=== PATIENT | female | born 1965 | race Caucasian/White ===

== ENCOUNTER 2017-11-06 16:30 | Outpatient (RCR) | payer OTHER, SELFPAY ==
--- NOTE | 2017-09-19 18:38 | HP.PTEVAL ---
Patient's Visit Information ROSMERY HERNADEZ is a 52 year old F referred to Physical Therapy by Eladio Diaz MD with a diagnosis of Shoulder Pain. Date of Evaluation: 09/19/17 Physical Therapist: Bette Martínez - Visit Plan Frequency: 2x /Week Duration: 4 Weeks Plan: Focus on UE ROM and strength - Subjective Subjective: Patient reports that she has bilateral shoulder pain- right is worse than left- insidous onset over the last few months. She went to the MD who diagnosed her with RTC tendonitis. She has not had x-rays or MRI of either shoulder. She feels that the pain/lack of ROM is getting worse. Pain at the worst is a 10/10 agg: pulling overhead, behind her back or lifting things. Best: 2/10 Eases: rest and keeping the arm close to her side. Pain is located along the anterior shoulder and runs to the posterior shoulder. Describes the pain as sharp/shooting. No neck pain but does report seeing a chiropractor for her back. N/T to the middle finger on the right that comes and goes. Sleep is disturbed- she sleeps on her side. Right hand dominate. Work: [employer]- she is on the computer and phone all day. PMHx: DM, Seizures (well controlled last was 15 years ago), sleep apnea. Meds: depicote, metformin, glenobride, Aleve - Objective Posture: FH, RS, increased kyphosis- prominent CT junction- can correct posture with VC's but does not maintain. Gait: decreased arm swing. Palpation: tender along tip of the acromion into the bicipital groove and medial border of the scapula. ROM: Cervical: WNL no pain, Shoulder: Left: wnl in all planes soreness reported with ER/IR, AROM Right- flexion: 130 degrees, abd: 110 degrees, ir: greater troch, AAROM: WNL in all planes with pain abd, flexion, ir,er. Elbow/Wrist/Hand: WNL. Strength: Cervical: 4+/5, Shoulder: flex-4/5, abd: 4/5, extn/add:4+/5, IR/ER: 4-/5 with pain. Scap: fair minus with mild winging. Special Test: Impingement: positive, Empty Can: positive - Goals Goal 1:: Patient will be I with HEP and progression Goal Time Frame: 4-6 Weeks Goal 2:: Patient will demo full AROM of the right shoulder Goal Time Frame: 4-6 Weeks Goal 3:: Patient will maintain proper posture to demo increased scap s/s Goal Time Frame: 4-6 Weeks Goal 4:: Patient will stack cones overhead for 2 min with 0/10 pain Goal Time Frame: 4-6 Weeks - Rehabilitation Potential Physical Therapy Diagnosis: Patient presents with hypomobility- she has decreased strength, ROM and muscular endurance leading to poor posture and increased pain with ADL's. Rehabilitation Potential: Fair - Anticipated Interventions Patient/Client Instruction: Educate patient on: Benefits of Fitness Program For the Purpose of:: To improve ability to perform ADL's Therapeutic Exercise to Include: Strength training, Endurance training, Body mechanics, Postural training, Passive ROM, Active ROM, Scapular Strength/Stabilization For the Purpose of:: To improve muscle performance and motor function TENS: Yes Cryotherapy (ice pack, ice massage): Yes Thermo therapy (hot pack): Yes Ultrasound (thermal/non thermal): Yes For the Purpose of:: To decrease pain Thank you for the opportunity to evaluate your patient. For Medicare and Medicare HMO plans, please review the plan of care and approve it. It will need to be FAXED BACK to us at [phone] for Medicare purposes. Please let me know if there are questions or concerns regarding this plan of care. Physician Signature: Date:
--- NOTE | 2017-10-16 16:48 | HP.PTREVAL_ITS ---
Eladio Diaz MD, It has been my pleasure to treat ROSMERY HERNADEZ over the last 8 visits for Shoulder Pain. Please see the progress note below for an update on the physical therapy plan of care! Subjective: Patient reports that the shoulders are getting better. Feels like we are on the right path. Worst in the last week 3-07/18- but most of the time painfree. Stiff in the AM and today after doing yard work. not waking her up at night. Feels that she would like another round of therapy and making herself use it. Objective/Function: Posture: FH, RS, increased kyphosis- prominent CT junction- can correct posture with VC's but does not maintain more than 3 minutes. Palpation: infraspinatus left>right. ROM: Cervical: WNL no pain, Shoulder: Left /right: WNL- increased discomfort with IR Elbow/Wrist/Hand: WNL. Strength: Cervical: 4+/5, Shoulder: flex-4+/5, abd: 4+/5, extn/add:4+/5, IR/ER: 4/5 with pain. Scap: fair minus with mild winging. Special Test: Impingement: positive, Empty Can: positive Plan Plan: Continue 2x a week for 2-3 weeks to promote HEP Goals Goal 1:: Patient will be I with HEP and progression Goal Time Frame: 4-6 Weeks Goal Progress: Progressing Goal 2:: Patient will demo full AROM of the right shoulder Goal Time Frame: 4-6 Weeks Goal Progress: Goal Met Goal 3:: Patient will maintain proper posture to demo increased scap s/s Goal Time Frame: 4-6 Weeks Goal Progress: Progressing Goal 4:: Patient will stack cones overhead for 2 min with 0/10 pain Goal Time Frame: 4-6 Weeks Goal Progress: Progressing Anticipated Interventions Patient/Client Instruction: Educate patient on: Benefits of Fitness Program For the Purpose of:: To improve ability to perform ADL's Therapeutic Exercise to Include: Strength training, Endurance training, Body mechanics, Postural training, Passive ROM, Active ROM, Scapular Strength/ Stabilization For the Purpose of:: To improve muscle performance and motor function TENS: Yes Cryotherapy (ice pack, ice massage): Yes Thermo therapy (hot pack): Yes Ultrasound (thermal/non thermal): Yes For the Purpose of:: To decrease pain Please do not hesitate to contact me at [phone] by phone or Fax: if you have questions or concerns regarding this new plan of care! Sincerely, Bette Martínez
--- NOTE | 2018-01-01 16:35 | HP.PTDCNRP_ITS ---
HP - Discharge Summary (1) - Patient Information ROSMERY HERNADEZ was seen in my office for initial evaluation on 09/19/17. The following Plan of Care was established for this patient: Initial Frequency: 2x /Week Initial Duration: 4 Weeks - Anticipated Interventions Patient/Client Instruction: Educate patient on: Benefits of Fitness Program For the Purpose of:: To improve ability to perform ADL's Therapeutic Exercise to Include: Strength training, Endurance training, Body mechanics, Postural training, Passive ROM, Active ROM, Scapular Strength/ Stabilization For the Purpose of:: To improve muscle performance and motor function TENS: Yes Cryotherapy (ice pack, ice massage): Yes Thermo therapy (hot pack): Yes Ultrasound (thermal/non thermal): Yes For the Purpose of:: To decrease pain This patient was last seen in our office . Pertinent comments regarding their Physical therapy will appear below: Patient has not attended physical therapy in over 4 weeks and is appropriate for d/c. At this point I will be discontinuing this patient from physical therapy. I would be happy to see this patient again in the future if found appropriate by the physician. Thank you! Bette Martínez
== END 2017-11-06 19:00 | disposition home or self-care (01) ==
LOC: PT 16:30
PROVIDERS: Family Provider Family Medicine; PCP Family Medicine; Visit Provider Family Medicine
DX: M75.22 Bicipital tendinitis, left shoulder (principal); M75.21 Bicipital tendinitis, right shoulder
CPT/HCPCS: 97110; 97161; 97164

== ENCOUNTER 2018-11-13 11:43 | Emergency (ER) | payer OTHER, SELFPAY ==
[2018-11-13 11:44] VITALS: BP 167/84; PULSE 84; RESP 16; TEMP 36.6; O2SAT 97; BMI 40.3
--- NOTE | 2018-11-13 11:51 | EKG12_ITS ---
Test Reason : CP Blood Pressure : / mmHG Vent. Rate : 080 BPM Atrial Rate : 080 BPM P-R Int : 132 ms QRS Dur : 076 ms QT Int : 404 ms P-R-T Axes : 052 -15 032 degrees QTc Int : 465 ms Normal sinus rhythm Nonspecific ST abnormality Abnormal ECG Confirmed by ANISHA GOLDEN ([id number]), website/blog editor KATHE BESS ([id number]) on 11/14/2018 2:34:14 PM Referred By: MIKHAIL Confirmed By:ANISHA GOLDEN
--- NOTE | 2018-11-13 11:53 | NURSING ---
NO OLD EKGS
--- NOTE | 2018-11-13 12:48 | CT_ITS ---
STUDY: CT ABDOMEN AND PELVIS WITHOUT CONTRAST REASON FOR EXAM: Female, 53 years old. 2 day history of left upper quadrant pain. RADIATION DOSAGE (If Supplied By Facility): CTDIvol = ( 13.71 ) mGy, DLP = ( 1344.94 ) mGycm TECHNIQUE: Transaxial images were obtained from the dome of the diaphragm to the symphysis pubis without oral contrast, and without intravenous contrast. Sagittal and coronal images were reconstructed. Individualized dose optimization techniques were used for this CT. COMPARISON: None. FINDINGS: The visualized lung bases are unremarkable. The visualized portions of the heart are within normal limits. There is decreased attenuation of the liver consistent with steatosis. Normal gallbladder and extrahepatic biliary system. Normal spleen. There is a 1.5 cm x 1.5 cm splenule in the upper left upper quadrant. Normal pancreas. Normal bilateral adrenal glands. Normal right kidney. Normal left kidney. Normal visualized stomach. Normal small intestine. Normal colon. The appendix is visualized and appears normal. There is scattered atherosclerotic calcification of the abdominal aorta, without a demonstrated aneurysm. Normal inferior vena cava. Normal retroperitoneum. Normal urinary bladder. IUD is seen within the uterus. Normal abdominal wall. There are degenerative changes of the visualized lumbar spine. CT/Abdomen/Pelvis W IV Cont ONLY IMPRESSION: Fatty infiltration of the liver. IUD is seen within the endometrium Electronically Signed: Daniel Whitman, at 15:13 EDT , Service support ,
--- NOTE | 2018-11-13 12:49 | ED.DCSUM_ITS ---
History of Present Illness Chief Complaint: General Illness Detail of Chief Complaint: abd pain Informant: Patient - Abdominal Pain/Flank Pain Onset: Weeks - 3 Context: Gradual Onset Timing: Continuous Quality: Dull Location: LUQ Current Severity: Moderate Maximum Severity: Moderate Worsened by: Nothing - nonpleuritic Relieved by: Nothing - Nausea/Vomiting/Emesis GI Symptom: Negative for: Nausea, Vomiting - Diarrhea/Melena/Hematochezia GI Symptom: Negative for: Diarrhea, Melena, Hematochezia Associated Symptoms: Negative for: Dysuria, Frequency, Hematuria, Urgency Narrative: 3 weeks of discomfort in her left upper quadrant, now for the last 3 or 4 days she has had gradual onset of left shoulder discomfort that is nonpleuritic, does not get worse when she moves her shoulder, radiates into her left proximal upper arm but not to her elbow. Occasionally get some paresthesias in her right hand but that has been going on for a lot longer. It is more when she reaches out with her hand. When I ask if she has chest discomfort, she points to her anterior left shoulder but no other discomfort. She denies any dyspnea, hemoptysis, leg pain or swelling, history DVT or PE, recent travel, immobilization, hospitalization, or surgery in the last 2 months. Prior similar symptoms: No - Past Medical History (1) Type 2 diabetes mellitus Status: Chronic (2) Seizure disorder Status: Chronic Past Medical History - Allergies and Home Meds Allergies/Adverse Reactions: Allergies No Known Allergies Allergy (Verified 11/13/18 13:10) Primary Care Physician: Lisa Mcnulty DO [Primary Care Provider] - Smoking Status: Never smoker Alcohol: None Drugs: None Review of Systems General: Denies: Chills, Fever, Sweats Eyes: Denies: Visual changes - bilaterally, Diplopia ENT: Denies: Rhinorrhea, Sore throat Cardiovascular: Reports: Chest pain - See HPI. Denies: Palpitations Respiratory: Denies: Dyspnea, Cough, Dyspnea on exertion Gastrointestinal: Reports: Abdominal pain. Denies: Nausea, Vomiting, Diarrhea, Melena, Hematochezia Genitourinary: Denies: Dysuria, Hematuria, Frequency Musculoskeletal: Reports: Extremity Pain. Denies: Neck pain, Back pain, Swelling Skin: Denies: Rash, Wounds Neurological: Reports: Parasthesia - See HPI. Denies: Headache, Weakness, Numbness Physical Exam Vital Signs/Narrative: Vital Signs Temp Pulse Resp BP Pulse Ox 11/13/18 11:44 97.8 F 84 16 167/84 H 97 Inital Vital Signs reviewed: Yes General: Well nourished, Well developed, No Acute Distress Head: Normocephalic, Atraumatic Eyes: Perrl, EOMI ENT: Moist mucous membranes, No rhinorrhea Neck: Supple, Nontender, No lymphadenopathy, No JVD Cardiovascular: Regular rate, Regular rhythm, No murmurs, Normal S1, Normal S2. Negative for: Tachycardia Respiratory: No distress, CTA bilaterally, Chest nontender Abdomen: Soft, Nondistended, Normal bowel sounds, Tender - Left upper quadrant only, especially when patient takes deep inspiration with my hand palpating. Negative for: Guarding, Rebound tenderness, Del Valle's sign Back: Nontender, Normal Inspection. Negative for: CVA tenderness, Spinal tenderness Extremities: Nontender, No edema. Negative for: Calf Tenderness Skin: Normal color, No rash Neurological: Alert, Oriented x3, Cranial nerves II-XII grossly intact, Normal Strength, Normal Sensation Psychological: Normal affect, Normal Mood Diagnostic/Tx/Re-eval Impressions Abdomen/Pelvis CT 11/13/18 12:48 IMPRESSION: Fatty infiltration of the liver. IUD is seen within the endometrium Electronically Signed: Daniel Whitman, at 15:13 EDT , Service support , Chest X-Ray 11/13/18 12:49 IMPRESSION: No acute abnormality is seen. Electronically Signed: Daniel Whitman, at 14:41 EDT , Service support , 11/13/18 12:48 Abdomen/Pelvis W IV Cont ONLY [CT] Stat 11/13/18 12:49 Chest PA and Lateral [RAD] Stat Laboratory Results 11/13/18 11/13/18 11/13/18 13:00 13:10 13:10 WBC 7.2 RBC 5.17 Hgb 16.1 H Hct 46.5 MCV 89.9 MCH 31.1 MCHC 34.6 RDW Std Deviation 41.8 RDW Coeff of Aureliano 12.6 Plt Count 198 MPV 11.6 Immature Gran % (Auto) 0.300 Neut % (Auto) 55.8 Lymph % (Auto) 34.6 [place] % (Auto) 7.5 Eos % (Auto) 1.1 Baso % (Auto) 0.7 Absolute Neuts (auto) 4.0 Absolute Lymphs (auto) 2.49 Nucleated RBC % 0 Sodium 139 Potassium 3.7 Chloride 103 Carbon Dioxide 27.0 Anion Gap 9 BUN 12 Creatinine 0.84 Estim Creat Clear Calc 71.67 Est GFR (MDRD) Af Amer 90 Est GFR (MDRD) Non-Af 75 BUN/Creatinine Ratio 14.2 Glucose 276 H Calcium 8.9 Total Bilirubin 1.80 H AST 25 ALT 43 Alkaline Phosphatase 119 H Troponin I < 0.015 Total Protein 7.5 Albumin 3.5 Globulin 4.0 Albumin/Globulin Ratio 0.9 Lipase 93 Urine Color Yellow Urine Clarity Cloudy Urine pH 5.0 Ur Specific [place] 1.025 Urine Protein 30 H Urine Glucose (UA) 1000 H Urine Ketones 150 H Urine Occult Blood 25 H Urine Nitrite Negative Urine Bilirubin Negative Urine Urobilinogen 1 H Ur Leukocyte Esterase 100 H Urine RBC 0 SEEN Urine WBC 0-5 SEEN Ur Squamous Epith Cells 10-25 SEEN Urine Bacteria 3+ Urine Mucus 0 SEEN Valproic Acid 11/13/18 13:10 WBC RBC Hgb Hct MCV MCH MCHC RDW Std Deviation RDW Coeff of Aureliano Plt Count MPV Immature Gran % (Auto) Neut % (Auto) Lymph % (Auto) [place] % (Auto) Eos % (Auto) Baso % (Auto) Absolute Neuts (auto) Absolute Lymphs (auto) Nucleated RBC % Sodium Potassium Chloride Carbon Dioxide Anion Gap BUN Creatinine Estim Creat Clear Calc Est GFR (MDRD) Af Amer Est GFR (MDRD) Non-Af BUN/Creatinine Ratio Glucose Calcium Total Bilirubin AST ALT Alkaline Phosphatase Troponin I Total Protein Albumin Globulin Albumin/Globulin Ratio Lipase Urine Color Urine Clarity Urine pH Ur Specific [place] Urine Protein Urine Glucose (UA) Urine Ketones Urine Occult Blood Urine Nitrite Urine Bilirubin Urine Urobilinogen Ur Leukocyte Esterase Urine RBC Urine WBC Ur Squamous Epith Cells Urine Bacteria Urine Mucus Valproic Acid 61 - Rhythm Strip Rhythm Strip: Sinus Rhythm Rate: 80 Ectopy: None - EKG Initial EKG Interpretation: Sinus Rhythm, No Acute Injury Pattern, Non-Specific ST Changes - inferiorly Prior: No Prior - Medical Decision Making Work-up is unremarkable including CT. Concern was for care sign, she has no evidence of splenic hematoma or acute abnormality on CT, and furthermore no evidence of other left angeles-diaphragmatic irritation to cause her possibly referred left shoulder pain. On further discussion, it is possible she is having reflux and gastritis, she states she has had a history of that is no longer on treatment, and has been drinking a lot of carbonated beverages. I think she is safe to follow-up as an outpatient. Her cardiac work-up was also negative and she has been having symptoms for days and weeks depending on the symptom. We will place her on a PPI, she will discontinue carbonated beverages, and follow-up. I think that is reasonable and she is amenable to that plan. ED Disposition - Plan for ED Patient: Disposition: Home or Assisted Living Diagnosis: Left upper quadrant pain, Upper back pain on left side Instructions: GASTRITIS vs. ULCER, GERD (Adult) Prescriptions: Pantoprazole Sodium [Protonix] 40 mg PO DAILY #30 tab Prescription Printed Referrals: Lisa Mcnulty DO [Primary Care Provider] - 1-2 Weeks
--- NOTE | 2018-11-13 12:49 | RAD_ITS ---
STUDY: X-RAY CHEST REASON FOR EXAM: Female, 53 years old. Left shoulder/back pain. TECHNIQUE: PA and lateral views of the chest. COMPARISON: None. FINDINGS: EKG electrodes are seen. The lungs are clear and expanded. Scattered calcified granulomas. There is no demonstrated pleural abnormality. Normal size heart. Normal mediastinum and agustina. Normal visualized pulmonary arteries. Normal visualized aortic arch and descending thoracic aorta. Normal visualized thoracic spine. Normal visualized ribs, clavicles, and shoulders. There is no demonstrated abnormality of the visualized soft tissue structures of the upper abdomen. RAD/Chest PA and Lateral IMPRESSION: No acute abnormality is seen. Electronically Signed: Daniel Whitman, at 14:41 EDT , Service support ,
[2018-11-13] MEDS: 0.9% Normal Saline 1,000 ML 250 ML IV (13:10)
[2018-11-13 13:19] LABS: Mucous, Urine 0 SEEN /hpf (<or=2+); Red Blood Cells-Urine 0 SEEN /hpf (0-5)
[2018-11-13 13:22] LABS: Absolute Lymphocyte Count 2.49 X10^3/uL (0.83-4.51); Basophil# 0.05 X10^3/uL; Basophil% 0.7 % (0-1); Eosinophil# 0.08 X10^3/uL; Eosinophils% 1.1 % (0-5); Hematocrit 46.5 % (37-47); Hemoglobin 16.1 g/dL (12.0-15.0); Lymphocyte # 2.49 X10^3/ul (4.0); Lymphocyte % 34.6 % (19-41); Mean Corp Hgb Conc 34.6 g/dL (32-36); Mean Corpuscular Hgb 31.1 pg (27.0-32.0); Mean Corpuscular Volume 89.9 fL (81-99); Mean Platelet Vol. 11.6 fl (6.2-12.0); Monocyte# 0.54 X10^3/uL; Monocyte% 7.5 % (0-10); NRBC Flagged by Analyzer 0 % (0-5); Neutrophil # 4.02 X10^3/uL (2.7-7.7); Neutrophil % 55.8 % (47-70); Platelet Count 198 K/mm3 (150-450); RBC Distribution Width CV 12.6 % (11.6-14.6); RBC Distribution Width SD 41.8 fl (35.1-43.9); Red Blood Count 5.17 M/mm3 (4.2-5.4); White Blood Count 7.2 K/mm3 (4.4-11.0)
[2018-11-13 13:27] LABS: Color, Urine Yellow (Yellow); Glucose, Dipstick 1000 mg/dl (Normal); Leukocyte Esterase-Dipstick 100 /ul (Negative); Nitrite-Dipstick Negative (Negative); Occult Blood-Urine 25 /ul (Negative); Protein-Dipstick 30 mg/dl (Negative); Specific Gravity, Urine 1.025 (1.002-1.030); Urine Bilirubin Dipstick Negative (Negative); Urine Clarity Cloudy (Clear); Urine Urobilinogen 1 mg/dl (Normal)
[2018-11-13 13:30] LABS: Ketone-Dipstick 150 mg/dl (Negative)
[2018-11-13 13:33] LABS: Bacteria 3+ /hpf (None Seen); Squamous Epithelial Cells - UA 10-25 SEEN /hpf (5-10); White Blood Cells 0-5 SEEN /hpf (0-5)
[2018-11-13 13:47] LABS: ALB/GLOB Ratio 0.9 RATIO (0.9-2.4); AST(SGOT) 25 U/L (15-37); Alanine Aminotransfer ALT/SGPT 43 U/L (13-56); Albumin, Serum 3.5 g/dL (3.2-5.0); Alkaline Phosphatase 119 U/L (45-117); Anion Gap 9 (5-15); BUN 12 mg/dL (7-18); BUN/Creat Ratio 14.2 RATIO (10-20); Calcium,Total 8.9 mg/dL (8.5-10.1); Chloride 103 mmol/L (98-107); Creatinine, Serum 0.84 mg/dL (0.55-1.02); EST Glomerular Filtration Rate 75 mL/min (>60); Est Glom Filt Rate - Afr Amer 90 mL/min (>60); Estimated Creatinine Clearance 71.67 ml/min; Glucose 276 mg/dL (74-106); Lipase 93 U/L (73-393); Potassium 3.7 mmol/L (3.5-5.1); Protein, Total 7.5 g/dL (6.4-8.2); Sodium Level 139 mmol/L (136-145)
[2018-11-13 14:00] LABS: Valproic Acid (Depakene) Level 61 ug/mL (50-100)
[2018-11-13 16:20] VITALS: BP 153/90; PULSE 69; RESP 16; O2SAT 97
[2018-11-13 16:21] VITALS: BP 153/90; PULSE 72; RESP 18; O2SAT 98
== END 2018-11-13 16:25 | disposition home or self-care (01) ==
PROVIDERS: Emergency Provider Emergency Medicine; Family Provider Family Medicine; PCP Family Medicine
DX: R10.12 Left upper quadrant pain (principal); M54.6 Pain in thoracic spine; K76.0 Fatty (change of) liver, not elsewhere classified; Z97.5 Presence of (intrauterine) contraceptive device
CPT/HCPCS: 71046; 74177; 80053; 80164; 81001; 83690; 84484; 85025; 93005; 96360; 96361; 99284; J7030; Q9967

== ENCOUNTER 2019-01-02 07:07 | Day surgery (SDC) | payer OTHER, SELFPAY ==
--- NOTE | 2018-12-04 02:01 | HP_ITS ---
Intake Vital Signs 12/04/18 Body Mass Index (BMI) 40.3 12/04/18 Height 5 ft 6 in 12/04/18 Weight: 247 lb 12/04/18 Body Mass Index (BMI) 39.9 12/04/18 Blood Pressure 155/88 H 12/04/18 Blood Pressure Location Rt brachial 12/04/18 Respiratory Rate 18 Intake Visit Reasons: C-Scope/EGD Consult Summer Internship Required: No Is patient in pain?: No Allergies No Known Allergies Allergy (Verified 12/04/18 13:35) Medications Divalproex Sodium 500 ng PO BID 11/13/18 [History Confirmed 12/04/18] Glimepiride [Amaryl] 4 mg PO DAILY 11/13/18 [History Confirmed 12/04/18] Pantoprazole Sodium [Protonix] 40 mg PO DAILY #30 tab 11/13/18 [Rx Confirmed 12/04/18] metFORMIN HCl [Glucophage] 1,000 mg PO BID 11/13/18 [History Confirmed 12/04/18] sucralfate 1 gram tablet 1 g PO QACHS 12/04/18 [History Confirmed 12/04/18] PFSH Medical History GERD (gastroesophageal reflux disease) (Acute) Type 2 diabetes mellitus (Chronic) Seizure disorder (Chronic) Surgical History S/P tonsillectomy (Acute) Family History Grandmother Colon cancer Diabetes Hypertension Father Hypertension Kidney disease Social History (Updated 12/04/18 @ 14:[address] MD) Smoking Status: Never smoker alcohol intake: current alcohol intake frequency: a few times a month HPI HPI HPI: ROSMERY HERNADEZ, is a 53 F who presents to the office today for HPI HPI Surgical H&P: Yes HPI: ROSMERY HERNADEZ, is a 53 F who presents to the office today for GERD, EGD/colonoscopy. Patient states about 3 to 4 weeks ago she had severe left upper quadrant pain that went to her left back and also left arm patient did go to the ER at that time and had a negative cardiac work-up. Patient followed up with her PCP and she got Protonix 40 mg p.o. daily. On further follow-up patient states that that was not really helping that much and Dr. Mcnulty also put patient on Carafate 1 g p.o. 4 times daily. Patient currently denies any left upper quadrant pain. She denies any real history of reflux except for occasionally she would have to may be swallowed twice to get some food down once every 6 months but denies any burning in her esophagus or left upper quadrant pain prior to this. Patient blood sugars are not controlled her A1c is 12.8. She was not taking her medication regularly however she has started to do so. She has not started to check her blood sugars at home but she cannot find her testing supplies which she acknowledged she will have to get some more. Patient does have bowel movements daily has occasional constipation for 1 to 2 days but once every 3 months and she can have diarrhea for a day maybe once a week. Patient is never had a colonoscopy or EGD. Patient's maternal grandmother did have colon cancer at age 61. Patient's mother does get regular colonoscopies. ROS General General: Yes weight change and fatigue Gastro Gastrointestinal: No abdominal pain, No nausea or vomiting, No diarrhea, No constipation, No blood in stool, Yes acid reflux, No hemorrhoids, No gallbladder problem, No black,tarry stools Exam Const General: cooperative, comfortable, no acute distress Resp Effort & Inspection: normal respiratory effort Cardio Rate: regular rate GI Inspection: non-distended Palpation: soft, no guarding, nontender Assessment & Plan Problems 1. GERD (gastroesophageal reflux disease) K21.9 2. Encounter for screening for malignant neoplasm of colon Z12.11 Plan Did discuss with patient trying to track her daily fiber recommend about 25 g daily. Also gave her a sheet of high-fiber foods. As this may be why she is having the occasional diarrhea or constipation. I have discussed the above with the patient. I have offered the patient EGD and colonoscopy for evaluation. I have explained the risks/benefits of the procedure and described the procedure. I have discussed the risks with the patient, including but not limited to: infection, bleeding, perforation of the GI tract requiring emergency surgery, inability to complete the procedure, injury to any internal organs, complications of anesthesia, etc. - the patient understands and agrees to proceed. I have answered all the patient's questions to the patient's satisfaction and the patient has no further questions. The patient has been given instructions for the colon cleansing preparation. 1 day of clears, MiraLAX Dulcolax split prep Ave Jay M.D. Pager: [phone] [facility] [address] [place], [place] [id number] Office: [phone] Plan Detail Follow Up We will schedule EGD and colonoscopy Coding Level of Care Code Off vis,est,level 3 Diagnoses GERD (gastroesophageal reflux disease) K21.9 Encounter for screening for malignant neoplasm of colon Z12.11 12/04/18 1401 <Electronically signed by Ave Granger am, MD> Date _ Ave Jay MD
[2018-12-04 13:36] VITALS: BMI 40.3
[2019-01-02 07:27] VITALS: BP 163/86; PULSE 68; RESP 16; TEMP 36.1; O2SAT 100; BMI 41.2
[2019-01-02 07:35] LABS: Internal QC Validated? YES +Cl - CLEAR BKGD; Pregnancy, Urine Negative Negative
[2019-01-02] MEDS: Lactated Ringers 1,000 ML 100 ML IV (07:49)
--- NOTE | 2019-01-02 07:51 | HP.PCM_ITS ---
History and Physical Date of Admission: 01/02/19 Date of Service: 12/04/18 MR#: [id number] Acct: [id number] Name: ROSMERY HERNADEZ Rep #: [id number] : 1965 Provider: Ave palmer MD Age/Sex: 53/F Location: [facility] Status: Signed Intake Vital Signs 12/04/18 Body Mass Index (BMI) 40.3 12/04/18 Height 5 ft 6 in 12/04/18 Weight: 247 lb 12/04/18 Body Mass Index (BMI) 39.9 12/04/18 Blood Pressure 155/88 H 12/04/18 Blood Pressure Location Rt brachial 12/04/18 Respiratory Rate 18 Intake Visit Reasons: C-Scope/EGD Consult Nail Sticker Required: No Is patient in pain?: No Allergies No Known Allergies Allergy (Verified 12/04/18 13:35) Medications Divalproex Sodium 500 ng PO BID 11/13/18 [History Confirmed 12/04/18] Glimepiride [Amaryl] 4 mg PO DAILY 11/13/18 [History Confirmed 12/04/18] Pantoprazole Sodium [Protonix] 40 mg PO DAILY #30 tab 11/13/18 [Rx Confirmed 12/04/18] metFORMIN HCl [Glucophage] 1,000 mg PO BID 11/13/18 [History Confirmed 12/04/18] sucralfate 1 gram tablet 1 g PO QACHS 12/04/18 [History Confirmed 12/04/18] PFSH Medical History GERD (gastroesophageal reflux disease) (Acute) Type 2 diabetes mellitus (Chronic) Seizure disorder (Chronic) Surgical History S/P tonsillectomy (Acute) Family History Grandmother Colon cancer Diabetes Hypertension Father Hypertension Kidney disease Social History (Updated 12/04/18 @ 14:[address] Jay MD) Smoking Status: Never smoker alcohol intake: current alcohol intake frequency: a few times a month HPI HPI HPI: ROSMERY HERNADEZ, is a 53 F who presents to the office today for HPI HPI Surgical H&P: Yes HPI: ROSMERY HERNADEZ, is a 53 F who presents to the office today for GERD, EGD/colon oscopy. Patient states about 3 to 4 weeks ago she had severe left upper quadrant pain that went to her left back and also left arm patient did go to the ER at that time and had a negative cardiac work-up. Patient followed up with her PCP and she got Protonix 40 mg p.o. daily. On further follow-up patient states that that was not really helping that much and Dr. Mcnulty also put patient on Carafate 1 g p.o. 4 times daily. Patient currently denies any left upper quadrant pain. She denies any real history of reflux except for occasionally she would have to may be swallowed twice to get some food down once every 6 months but denies any burning in her esophagus or left upper quadrant pain prior to this. Patient blood sugars are not controlled her A1c is 12.8. She was not taking her medication regularly however she has started to do so. She has not started to check her blood sugars at home but she cannot find her testing supplies which she acknowledged she will have to get some more. Patient does have bowel movements daily has occasional constipation for 1 to 2 days but once every 3 months and she can have diarrhea for a day maybe once a week. Patient is never had a colonoscopy or EGD. Patient's maternal grandmother did have colon cancer at age 61. Patient's mother does get regular colonoscopies. ROS General General: Yes weight change and fatigue Gastro Gastrointestinal: No abdominal pain, No nausea or vomiting, No diarrhea, No constipation, No blood in stool, Yes acid reflux, No hemorrhoids, No gallbladder problem, No black,tarry stools Exam Const General: cooperative, comfortable, no acute distress Resp Effort & Inspection: normal respiratory effort Cardio Rate: regular rate GI Inspection: non-distended Palpation: soft, no guarding, nontender Assessment & Plan Problems 1. GERD (gastroesophageal reflux disease) K21.9 2. Encounter for screening for malignant neoplasm of colon Z12.11 Plan Did discuss with patient trying to track her daily fiber recommend about 25 g daily. Also gave her a sheet of high-fiber foods. As this may be why she is having the occasional diarrhea or constipation. I have discussed the above with the patient. I have offered the patient EGD and colonoscopy for evaluation. I have explained the risks/benefits of the procedure and described the procedure. I have discussed the risks with the patient, including but not limited to: infection, bleeding, perforation of the GI tract requiring emergency surgery, inability to complete the procedure, injury to any internal organs, complications of anesthesia, etc. - the patient understands and agrees to proceed. I have answered all the patient's questions to the patient's satisfaction and the patient has no further questions. The patient has been given instructions for the colon cleansing preparation. 1 day of clears, MiraLAX Dulcolax split prep Ave Jay M.D. Pager: [phone] [facility] [address] [place] [address], [facility], [address] [place] [address] Office: [phone] Plan Detail Follow Up We will schedule EGD and colonoscopy Coding Level of Care Code Off vis,est,level 3 Diagnoses GERD (gastroesophageal reflux disease) K21.9 Encounter for screening for malignant neoplasm of colon Z12.11 12/04/18 1401 <Electronically signed by Ave Granger am, MD> Date _ Ave Jay MD
--- NOTE | 2019-01-02 08:00 | IMM_PTH ---
PATIENT: ROSMERY HERNADEZ LOC: EN U#:[id number] AGE/SX: 53/F ROOM: RE01/02/[address]: Dr. Ave Jay MD : 1965 BED: DIS: 01/02/2019 SPEC #: [id number] RECD: 01/02/19 15:18 STATUS: KEY MERT #: [id number] SHIRA: 01/02/19 08:[address]: Ave Jay DEPT: IMMUNOHISTOCHEMISTRY RECD BY: Carrie Crawford ENTERED: 01/02/19 15:18 SP TYPE: IMMUNO OTHR DR: Dr. Lisa Mcnulty DO Tissues: A - Stomach, NOS Procedures: H Pylori (initial) PHYSICIAN & INSTITUTION [place] [id number] SPECIMEN INFORMATION: Tissue Source: A - Antral biopsy Clinical Info: GERD, LUQ pain, screening Specimen Number: [id number] CPT code: 96514 METHODOLOGY: Deparaffinized sections of prefer/formalin-fixed tissue or PAP/DQ stained slides are incubated with monoclonal/polyclonal antibodies/oligonucleotide probes. Localization is made via biotin free immunoperoxidase method. Appropriate controls are performed and reacted as expected. Results on target cell population are indicated in the following table: RESULTS: ANTIBODY / CLONE RESULT Block A H Pylori (polyclonal) negative These tests were developed and their performance characteristics determined by [facility]. They may not have been cleared or approved by the U.S. Food and Drug Administration. The FDA has determined that such clearance or approval is not necessary. INTERPRETATION: A. Antral biopsy: Negative for Helicobacter pylori organisms. SJ:gregg 01/03/19 Case has been reviewed in consultation with Dr. Ritter who concurs with the above diagnosis. IDC:AM
--- NOTE | 2019-01-02 08:00 | COLBX_PTH ---
PATIENT: ROSMERY HERNADEZ LOC: EN U#:[id number] AGE/SX: 53/F ROOM: RE01/02/[address]: Dr. Ave Jay MD : 1965 BED: DIS: 01/02/2019 SPEC #: [id number] RECD: 01/02/19 12:13 STATUS: KEY MERT #: [id number] SHIRA: 01/02/19 08:[address]: Ave Jay DEPT: SURGICAL PATHOLOGY RECD BY: Shavonne Snyder ENTERED: 01/02/19 13:53 SP TYPE: COLON BX OTHR DR: Dr. Lisa Mcnulty DO Tissues: A - Gastric mucous membrane B - Gastric mucous membrane C - Sigmoid colon biopsy Procedures: Special Stain Group II Surgery Specimen Level IV Alcian Blue/PAS (control) HEADER OPERATION: Colonoscopy, EGD ([facility]) PRE-OP DIAGNOSIS: GERD, left upper quadrant pain, screening TISSUE SUBMITTED: A. Antral biopsy for H. pylori and pathology, B. GE junction biopsy, C. Sigmoid polyp biopsy MICROSCOPIC DIAGNOSIS A. Antral biopsy: Mild to moderate gastritis. See microscopic description and comment. B. GE junction, biopsy: A fragment of gastroesophageal mucosa with moderate chronic inflammation. Intestinal metaplasia (goblet cell metaplasia) is not identified. See comment. C. Sigmoid colon polyp, biopsy: Fragments of tubular adenoma. SJ:rg 01/03/19 COMMENT A. The results of immunohistochemistry for Helicobacter pylori will be reported separately ([id number]). B. Alcian blue/PAS stain with matched control is used in the evaluation of the specimen. This case has been reviewed in consultation with Dr. Ritter who concurs with the above diagnosis. MICROSCOPIC DESCRIPTION Slides are reviewed. A. The specimen shows fragments of gastric mucosa with chronic inflammatory cell infiltrates in the lamina propria consisting of lymphocytes and plasma cells, consistent with mild to moderate chronic gastritis. GROSS DESCRIPTION A -Received in fixative is one container labeled with the patient's name and designated antral biopsy. The specimen consists of one irregular fragment of light ge soft tissue that measures 0.3 x 0.3 x 0.1 cm. The specimen is totally submitted in one cassette. B - Received in fixative is one container labeled with the patient's name and designated GE junction biopsy. The specimen consists of one irregular fragment of light ge soft tissue that measures 0.4 x 0.3 x 0.1 cm. The specimen is totally submitted in one cassette. C - Received in fixative is one container labeled with the patient's name and designated sigmoid colon polyp. The specimen consists of multiple irregular fragments of light ge soft tissue that in aggregate measure 1.5 x 0.3 x 0.1 cm. The specimen is totally submitted in one cassette. / SJ:rg 01/02/19 TC:1 CPT: 45799 x3, 42543
[2019-01-02 08:01] LABS: Bedside Glucose 108 mg/dL (70-110)
[2019-01-02 08:40] VITALS: BP 109/73; BP 163/86; PULSE 68; RESP 16; TEMP 36.1; O2SAT 98
--- NOTE | 2019-01-02 08:40 | OP.ENDO_ITS ---
01/02/2019 Lisa Mcnulty [address] [facility] [place] [address] Re : Upper GI endoscopy procedure for Anahy Her Dear Dr. Mcnulty This procedure was performed on Wednesday, January 02, 2019. My impressions and recommendations are as follows: Impressions : - Z-line irregular, 35 cm from the incisors. Biopsied. - Erythematous mucosa in the antrum. Biopsied. - Normal stomach. - Gastritis. - Normal examined duodenum. Recommendations : - Await pathology results. - Discharge patient to home. - Continue present medications. My findings are described in the full procedure note, which is enclosed. If I can be of further assistance, please feel free to contact me at Doctor phone number(s): , Work: . Sincerely, MD Ave Desir MD 01/02/2019 8:39:50 AM This report has been signed electronically.
--- NOTE | 2019-01-02 08:43 | OP.ENDO_ITS ---
01/02/2019 Lisa Mcnulty [address] [place] [address] Re : Colonoscopy procedure for Anahy Her Dear Dr. Mcnulty This procedure was performed on Wednesday, January 02, 2019. My impressions and recommendations are as follows: Impressions : - One less than 5 mm polyp in the sigmoid colon, removed with a cold biopsy forceps. Resected and retrieved. - The examination was otherwise normal on direct and retroflexion views. Recommendations : - Discharge patient to home. - Resume previous diet. - Continue present medications. - Repeat colonoscopy in 3 - 5 years for surveillance based on pathology results. My findings are described in the full procedure note, which is enclosed. If I can be of further assistance, please feel free to contact me at Doctor phone number(s): , Work: . Sincerely, MD Ave Desir MD 01/02/2019 8:42:41 AM This report has been signed electronically.
[2019-01-02 08:45] VITALS: BP 111/73; BP 163/86; PULSE 68; RESP 16; O2SAT 98
[2019-01-02 08:50] VITALS: BP 111/73; BP 163/86; PULSE 62; RESP 16; O2SAT 100
[2019-01-02 08:55] VITALS: BP 125/75; BP 163/86; PULSE 65; RESP 16; TEMP 36.4; O2SAT 98
[2019-01-02 09:12] VITALS: BP 163/86
== END 2019-01-02 09:32 | disposition home or self-care (01) ==
LOC: EN 07:08 → AC 07:09
PROVIDERS: Anesthesiology; Family Provider Family Medicine; PCP Family Medicine; Referring Provider Family Medicine; Visit Provider Surgery
PROC: 0DJD8ZZ Inspection of Lower Intestinal Tract, Via Natural or Artificial Opening Endoscopic (ICD-10-PCS; CPT 45378; principal; 2019-01-02 07:55)
DX: Z12.11 Encounter for screening for malignant neoplasm of colon (principal); K21.9 Gastro-esophageal reflux disease without esophagitis; D12.5 Benign neoplasm of sigmoid colon; K29.70 Gastritis, unspecified, without bleeding; K59.00 Constipation, unspecified; Z79.84 Long term (current) use of oral hypoglycemic drugs; Z80.0 Family history of malignant neoplasm of digestive organs; R10.12 Left upper quadrant pain
CPT/HCPCS: 43239; 45380; 81025; 82962; 88305; 88313; 88342; J7120; J2405

== ENCOUNTER → 2019-12-06 | Outpatient (CLI) | payer OTHER, SELFPAY ==
[2019-12-09 09:31] LABS: HIV - WCH Non-Reactive (Nonreactive); Hepatitis B Surface Antigen Non-Reactive (Nonreactive)
[2019-12-12 06:28] LABS: Rapid Plasmin Reagin (RPR) NONREACTIVE (NONREACTIVE)
[2019-12-17 20:24] LABS: HPV HC, High Risk Positive (Negative)
== END | disposition home or self-care (01) ==
PROVIDERS: PCP Family Medicine; Visit Provider Family Medicine
DX: Z20.9 Contact with and (suspected) exposure to unspecified communicable disease (principal)
CPT/HCPCS: 36415; 86592; 86703; 87340; 87491; 87591; 87623; 87624; 88175; G0145

== ENCOUNTER → 2021-10-20 | Outpatient (CLI) | payer OTHER, SELFPAY ==
--- NOTE | 2021-10-20 17:54 | MRI_ITS ---
STUDY: MRI LEFT ANKLE WITHOUT CONTRAST REASON FOR EXAM: Posterior ankle lump for 2.5 months, felt a pop, no specific injury. TECHNIQUE: Standardized fat and water weighted pulse sequences were obtained in all 3 orthogonal planes. COMPARISON: None. FINDINGS: There is edema in the subcutis adipose space. Normal posterior tibialis tendon. Normal flexor digitorum longus tendon. Normal flexor hallucis longus tendon. Normal peroneus longus and brevis tendons. Normal tibialis anterior tendon. Normal extensor hallucis longus tendon. Normal extensor digitorum longus tendons. There is Achilles tendinosis with fusiform thickening measuring 1.9 cm in AP dimension and a high-grade intrasubstance partial tear of the Achilles tendon approximately 4 cm proximal to the calcaneal insertion; the tear extends over a 3.4 cm in length (inversion recovery sagittal images 8-11; T2 axial series 4 images 6-12). Normal plantar fascia. Normal plantar calcaneal tubercles. Normal intrinsic muscles of the rearfoot. Normal distal tibiofibular syndesmotic ligamentous complex. Normal lateral ligamentous complex. Normal subtalar ligaments and sinus tarsi. Normal deltoid ligamentous complexes. Normal plantar calcaneonavicular (spring) ligament. There is a small tibiotalar joint effusion (inversion recovery sagittal images 15, 16). Normal talar dome. There is a small posterior subtalar joint effusion (inversion recovery sagittal images 15, 16). Normal talonavicular articulation. Normal calcaneocuboid articulation. There is a subchondral cyst of the proximal medial cuneiform at the navicular-cuneiform articulations. MRI/Lower Ext Joint Only (Routine) IMPRESSION: Achilles tendinosis with high-grade intrasubstance partial tear. Small tibiotalar and posterior subtalar joint effusions. Electronically Signed: Parmjit Esparza MD at 8:57 EDT ,
== END | disposition home or self-care (01) ==
LOC: MRI 17:42
PROVIDERS: PCP Family Medicine; Visit Provider Podiatrist
DX: M76.62 Achilles tendinitis, left leg (principal); M79.605 Pain in left leg
CPT/HCPCS: 73721

== ENCOUNTER 2023-11-10 09:30 | Outpatient (RCR) | payer BC, SELFPAY ==
--- NOTE | 2023-10-24 11:52 | HP.PTEVAL ---
Patient's Visit Information Visit Information Visit Information: ROSMERY HERNADEZ is a 58 year old F referred to Physical Therapy by Dr. Lisa Mcnulty DO with a diagnosis of R knee and L foot pain with balance issues. Date of Evaluation: 10/24/23 Physical Therapist: Zbigniew Mcdonnell DPT Visit Plan Frequency: 2x /Week Duration: 6 Weeks Plan: Start with calf stretching bilaterally, G/S strengthening. Progress to static and dynamic balance on multiple surfaces. Add in righting reaction Floor transfers when able. Subjective Subjective: Pt. is here today for her initial evaluation with diagnosis of R knee and L foot pain with balance issues. Pt. reports tearing her L achilles partially and was in a boot for ~6-7 months??? Pt. reports falling ~3 times in the past 3 years. Pt. reports tripping over objects, but reports not being able to recover well. She also reports difficulty with getting up from the floor if she was to fall. Pt. reports having diabetic neuropathy from DM II. Pt. reports being anxious about falling due to her previously falling and with her L ankle. Pt. also reports B knee stiffness that limits her as well. 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 Pt. is hopeful to increase BLE strength and stability in order to increase recreational walking and increase her confidence with her overall mobility. Pain L achilles: Pain Intensity (Out of 10): 0 Pain Intensity Range: 0 and 2 R knee: Pain Intensity (Out of 10): 0 Pain Intensity Range: 0 and 2 Objective Objective: POSTURE: Pt. has slight FH posture and fairly wide ALAYNA. PALPATION: Pt. has no palpation throughout BLEs. NEURO: Pt. has good sensation throughout BLEs, slightly bilateral diminished achilles and patellar DTR. Pt. does have some difficulty with rising on L toes, but due to L LE weakness. ROM: LLE: ankle: DF 8deg, PF 34deg; knee: 0-5-107deg. Pt. has tightness in calf and in HS as well. RLE: ankle; DF 12deg, PF 43deg; knee: 0-8-113deg. Pt. has less tightness of R calf and R HS compared to L side. MMT: LLE: ankle: DF 11.3#, PF 21.1#; knee: ext 23.4#, flexion 18.5#; hip: flexion 15.3#, abd 12.5#. RLE: ankle: DF 14.1#, PF 22.3#; knee: ext 24.1#, flexion 19.9.5#; hip: flexion 15.6#, abd 12.9#. GAIT: Pt. ambulates without AD. She has some slight postural sway, but not severe. She has increased L toeing out and tends to have decreased control during L loading phase, not smooth eccentric lowering on L side STAIRS: Pt. is able to complete with B HR, marked functional weakness with BLEs with ascending. Early heel off with LLE during loaded descending. Pt. uses BHR for assistance and with balance. Pt. is very cautious with descending. BALANCE: SLS: RLE- 12sec, L 5sec. Heel toe stance: 5sec and 6 sec. TU.8sec. without AD. FGA: 16/30 Balance/Special Test Scores Functional Gait Assessment Score: 16 % Disability: 46.6700 Lower Extremity Functional Score: 23 TUG Test Time Seconds: 11.8 Goals Goal 1:: LTG: Pt. to be I with HEP. Goal Time Frame: 4-6 Weeks Goal 2:: LTG: Pt. to have improved TUG to under 10sec indicating increased stability with functional mobility. Goal Time Frame: 4-6 Weeks Goal 3:: LTG: Pt. to have improved FGA to 23/30 indicating increased stability with all functional mobility. Goal Time Frame: 4-6 Weeks Goal 4:: LTG: Pt. 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 Goal Time Frame: 4-6 Weeks Goal 5:: LTG: Pt. be able to negotiate all steps with 1 HR with reciprocal pattern without issues. Goal Time Frame: 4-6 Weeks Goal 6:: LTG: Pt. to be able get on and off the ground I without external assistance. Goal Time Frame: 4-6 Weeks Rehabilitation Potential Physical Therapy Diagnosis: Pt. has signs and symptoms consistent with L ankle weakness/tightness, generalized weakness reducing in imbalance and difficulty with gait. Pt. would benefit from PT to address the above limitations progressing back to improved gait pattern and stability in stance. Rehabilitation Potential: Good Anticipated Interventions Patient/Client Instruction: Educate patient on: Condition, Plan of Care, Risk Factors and Benefits of Fitness Program For the Purpose of:: To foster healthy habits, To improve decision making, To facilitate caregiver knowledge, To improve self management, To prevent re-injury and To improve ability to perform tasks related to life management Therapeutic Exercise to Include: Strength training, Power training, Balance training, Body mechanics, Postural training and Gait and locomotor training For the Purpose of:: To decrease pain, To increase ROM, To improve nutrient delivery to tissue, To increase oxygenation perfusion, To improve muscle performance and motor function, To improve ability to perform ADL's, To improve health of tissue, To increase flexibility/ROM, To improve endurance and To improve balance Text: Thank you for the opportunity to evaluate your patient. For Medicare and Medicare HMO plans, please review the plan of care and approve it. It will need to be FAXED BACK to us at [phone] for Medicare purposes. For Medicare only, by signing this I certify the plan of care. Please let me know if there are questions or concerns regarding this plan of care. Physician Signature: Date:
== END 2023-11-10 19:00 | disposition home or self-care (01) ==
LOC: PT 09:30
PROVIDERS: PCP Family Medicine; Referring Provider Family Medicine; Visit Provider Family Medicine
DX: M25.561 Pain in right knee (principal); M79.672 Pain in left foot; R26.89 Other abnormalities of gait and mobility; E11.9 Type 2 diabetes mellitus without complications
CPT/HCPCS: 97110; 97161

== ENCOUNTER → 2024-02-06 | Outpatient (CLI) | payer BC, SELFPAY ==
--- NOTE | 2024-02-06 10:18 | NM_ITS ---
CLINICAL: 58-year-old female with history of early satiety. SEMI-SOLID PHASE 99m Tc SULFUR COLLOID GASTRIC EMPTYING STUDY COMPARISON: None available FINDINGS: The patient was administered 1.0 mCi of 99m Tc sulfur colloid mixed with oatmeal and consumed per os. Image acquisitions in the anterior-posterior projections were obtained for 60 minutes. There is prompt visualization of the stomach. There is no gastroesophageal reflux identified. The T ? linear fit was calculated to be 30.56 minutes, (Normal: 12-56 minutes). NM/Gastric Emptying Study IMPRESSION: 1. NORMAL 99m Tc sulfur colloid semi-solid phase (oatmeal) gastric emptying imaging examination. A. There is normal and preserved semi-solid phase gastric emptying compared to normal controls. (Javier et al, J Nucl Med Tech 38: 186, 2010). Electronically Signed: Joselo Reece DO at 10:04 EDT ,
== END | disposition home or self-care (01) ==
LOC: NM 10:16
PROVIDERS: PCP Family Medicine
DX: R19.7 Diarrhea, unspecified (principal)
CPT/HCPCS: 78264; A9541

== ENCOUNTER → 2024-03-19 | Outpatient (CLI) | payer BC, SELFPAY ==
--- NOTE | 2024-03-19 14:07 | CDU_ITS ---
Reason For Study: Amaurosis Fugax Rt. Velocities/BP Lt. Velocities/BP Prox CCA 89/12 cm/sec. Prox CCA 113/13 cm/sec. Mid CCA 84/13 cm/sec. Mid CCA 77/14 cm/sec. Dist CCA 58/13 cm/sec. Dist CCA 45/10 cm/sec. Prox ICA 79/23 cm/sec. Prox ICA 81/26 cm/sec. Mid ICA 98/30 cm/sec. Mid ICA 77/27 cm/sec. Dist ICA 79/23 cm/sec. Dist ICA 72/23 cm/sec. Rt. ICA/CCA = 1.2. Lt. ICA/CCA = 1.1. Prox ECA 67/4 cm/sec. Prox ECA 302/8 cm/sec. Rt. Vert. 54/14 cm/sec. Lt. Vert. 60/16 cm/sec. Right Extracranial There is intimal thickening but no significant atherosclerotic plaque noted in the right common carotid artery. There is heterogeneous, irregular atherosclerotic plaque noted in the right internal carotid artery. There is intimal thickening but no significant atherosclerotic plaque noted in the right external carotid artery. Antegrade flow is noted in the right vertebral artery. Left Extracranial There is heterogeneous, irregular atherosclerotic plaque noted in the left common carotid artery. There is heterogeneous, irregular atherosclerotic plaque noted in the left internal carotid artery. There is heterogeneous, irregular atherosclerotic plaque noted in the left external carotid artery. Antegrade flow is noted in the left vertebral artery. Procedure Carotid Duplex 95125. This is a Carotid Duplex examination using B-mode, color flow and specral Doppler. Exam performed in department. VL/Carotid Duplex Ultrasound Interpretation Summary Mild (<50%) stenosis right extracranial internal carotid. Mild (<50%) stenosis left extracranial internal carotid. Flow within the vertebral arteries is antegrade bilaterally. Elevated velocities in the left external carotid artery suggest stenosis >50%. Ordering Physician: Eladio Marley Referring Physician: Malys, Performed By: Ginette Griffith RDCS, RVT
== END | disposition home or self-care (01) ==
LOC: CVS 14:06
PROVIDERS: PCP Family Medicine; Referring Provider Ophthalmology; Visit Provider Ophthalmology
DX: G45.3 Amaurosis fugax (principal)
CPT/HCPCS: 93880